=== PATIENT | male | born 1930 | race Caucasian/White ===

== ENCOUNTER 2017-06-25 10:05 | Inpatient (IN) | payer MEDICARE, MEDICAID ==
[~2017-06-25] VITALS: Ht 185.4 cm; Wt 100.0 kg
[~2017-06-25 10:05] MED LIST: AMLODIPINE5 MG PO; ASPIRIN LOW DOS81 MG PO; BUSPIRONE5 MG PO; CRESTOR40 MG PO; CYMBALTA60 MG PO; EQ LAXATIVE8.6 MG PO; GABAPENTIN100 MG PO; HYDROCO/APAP1 TA9 PO; LOSARTAN POT50 MG PO; RAPAFLO8 MG PO; RIVASTIGMINE4.5 MG PO; TOUJEO SOL300 UNIT/M SC; TRAMADOL HCL50 MG PO
[2017-06-25 10:44] LABS: HEMOGLOBIN 12.1 g/dl (14.0-18.0); IMMATURE GRANULOCYTES 0.4 % (0.0-1.0); MEAN CELL VOLUME 88.7 fL CALC (80.0-100.0); MEAN CORPUSCULAR HGB CONC 32.7 g/L CALC (32.0-36.0); NEUT# 14.03 thou/uL (1.82-7.42); RED BLOOD COUNT 4.17 mill/uL (4.70-6.10); RED CELL DISTRI WIDTH 14.5 % (11.5-15.5)
[2017-06-25 11:19] LABS: ALBUMIN 3.9 g/dL (3.2-5.0); BILIRUBIN, TOTAL 1.5 mg/dL (0.0-1.4); CALCIUM 10.2 mg/dL (8.4-10.2); CREATININE 1.7 mg/dL (0.7-1.3); POTASSIUM 4.1 mmol/l (3.5-5.1); TOTAL PROTEIN 8.2 g/dL (6.3-8.2)
[2017-06-25 12:57] LABS: URINE BLOOD DIPSTICK LARGE (NEGATIVE); URINE CLARITY CLEAR; URINE COLOR YELLOW; URINE GLUCOSE - DIPSTICK NEGATIVE (NEGATIVE); URINE KETONE 15 mg/dL (NEGATIVE); URINE LEUK ESTERASE NEGATIVE (NEGATIVE); URINE NITRITE - DIPSTICK NEGATIVE (Negative); URINE PH 5.5 (4.5-8.0); URINE PROTEIN - DIPSTICK 100 mg/dL (NEG-TRACE); URINE SPECIFIC GRAVITY >=1.030; URINE UROBILINOGEN - DIPSTICK 0.2 E.U./dL (0.2)
[2017-06-25 12:58] LABS: URINE BILIRUBIN - DIPSTICK SMALL (NEGATIVE)
[2017-06-25 13:02] LABS: BARBITURATES NEGATIVE (NEGATIVE); COCAINE NEGATIVE (NEGATIVE); METHADONE NEGATIVE (NEGATIVE); OXCYCODONE NEGATIVE (NEGATIVE); TETRAHYDROCANNABIONOL NEGATIVE (NEGATIVE); TRICYLIC ANTIDEPRESSANTS NEGATIVE (NEGATIVE)
[2017-06-25 13:06] LABS: URINE RBC TNTC RBC/hpf (0-5); URINE SQUAMOUS EPITHELIAL CELL FEW EPI/hpf (0-FEW)
[2017-06-25 15:29] VITALS: BP 145/65
[2017-06-25 19:15] VITALS: BP 130/63
[2017-06-25 23:45] VITALS: BP 111/67
[2017-06-26 04:00] VITALS: BP 120/55
[2017-06-26 05:42] LABS: CALCIUM 9.7 mg/dL (8.4-10.2); CREATININE 1.5 mg/dL (0.7-1.3); POTASSIUM 4.1 mmol/l (3.5-5.1)
[2017-06-26 05:44] LABS: HEMATOCRIT 36.3 % (39.0-50.0); HEMOGLOBIN 11.7 g/dl (14.0-18.0); IMMATURE GRANULOCYTES 0.5 % (0.0-1.0); MEAN CELL VOLUME 90.3 fL CALC (80.0-100.0); MEAN CORPUSCULAR HGB 29.1 pG CALC (26.0-32.0); MEAN CORPUSCULAR HGB CONC 32.2 g/L CALC (32.0-36.0); NEUT# 9.46 thou/uL (1.82-7.42); RED BLOOD COUNT 4.02 mill/uL (4.70-6.10); RED CELL DISTRI WIDTH 14.6 % (11.5-15.5)
[2017-06-26 09:01] VITALS: BP 101/61
[2017-06-26 11:35] VITALS: BP 102/37
[2017-06-26 15:54] VITALS: BP 118/57
[2017-06-26 19:00] VITALS: BP 107/63
[2017-06-26 23:00] VITALS: BP 101/58
[2017-06-27 04:20] VITALS: BP 112/65
[2017-06-27 06:21] LABS: ANION GAP 13 (6-22 (CALC)); BUN 20 mg/dL (8-23); BUN/CREATININE RATIO 16 (12-20 (CALC)); CALCIUM 9.3 mg/dL (8.4-10.2); CARBON DIOXIDE 22 mmol/l (22-30); CHLORIDE 109 mmol/l (95-108); CREATININE 1.3 mg/dL (0.7-1.3); GFR 52 ML/MIN (>=60 (CALC)); GFR FOR AFR.AMER. > 60 ML/MIN (>=60 (CALC)); GLUCOSE 64 mg/dL (82-115); MAGNESIUM 1.7 mg/dL (1.6-2.3); SODIUM 140 mmol/l (137-146)
[2017-06-27 07:43] VITALS: BP 109/50
[2017-06-27 08:07] LABS: HEMATOCRIT 31.7 % (39.0-50.0); HEMOGLOBIN 10.2 g/dl (14.0-18.0); IMMATURE GRANULOCYTES 0.5 % (0.0-1.0); MEAN CELL VOLUME 89.5 fL CALC (80.0-100.0); MEAN CORPUSCULAR HGB 28.8 pG CALC (26.0-32.0); MEAN CORPUSCULAR HGB CONC 32.2 g/L CALC (32.0-36.0); NEUT# 6.11 thou/uL (1.82-7.42); RED BLOOD COUNT 3.54 mill/uL (4.70-6.10); RED CELL DISTRI WIDTH 14.5 % (11.5-15.5)
[2017-06-27 11:39] VITALS: BP 98/57
[2017-06-27 15:59] VITALS: BP 101/58
[2017-06-27] MEDS ORDERED: LEVAQUIN750 MG PO (21:57)
[2017-06-27] MEDS ORDERED: TOUJEO SOL300 UNIT/M SC (21:58)
[2017-06-27 23:00] VITALS: BP 98/61
[2017-06-28 04:00] VITALS: BP 115/57
[2017-06-28 05:21] LABS: HEMATOCRIT 31.1 % (39.0-50.0); HEMOGLOBIN 10.1 g/dl (14.0-18.0); IMMATURE GRANULOCYTES 0.6 % (0.0-1.0); MEAN CELL VOLUME 88.9 fL CALC (80.0-100.0); MEAN CORPUSCULAR HGB 28.9 pG CALC (26.0-32.0); MEAN CORPUSCULAR HGB CONC 32.5 g/L CALC (32.0-36.0); NEUT# 5.08 thou/uL (1.82-7.42); RED BLOOD COUNT 3.5 mill/uL (4.70-6.10); RED CELL DISTRI WIDTH 14.4 % (11.5-15.5)
[2017-06-28 05:37] LABS: ANION GAP 12 (6-22 (CALC)); BUN 16 mg/dL (8-23); BUN/CREATININE RATIO 13 (12-20 (CALC)); CALCIUM 9.5 mg/dL (8.4-10.2); CARBON DIOXIDE 24 mmol/l (22-30); CHLORIDE 111 mmol/l (95-108); CREATININE 1.3 mg/dL (0.7-1.3); GFR 52 ML/MIN (>=60 (CALC)); GFR FOR AFR.AMER. > 60 ML/MIN (>=60 (CALC)); GLUCOSE 68 mg/dL (82-115); MAGNESIUM 1.8 mg/dL (1.6-2.3); POTASSIUM 3.9 mmol/l (3.5-5.1); SODIUM 143 mmol/l (137-146)
[2017-06-28 11:00] VITALS: BP 134/72
== END 2017-06-28 15:58 | DRG 195 ==
LOC: ED 10:05 → ED-I 12:42 → ED 13:21 → MS2 13:22
PROVIDERS: Emergency Medicine; Nurse Practitioner Family; ADMIT Internal Medicine; ATTEND Internal Medicine
DX: J18.9 Pneumonia, unspecified organism (principal); E11.22 Type 2 diabetes mellitus with diabetic chronic kidney disease; E11.69 Type 2 diabetes mellitus with other specified complication; I12.9 Hypertensive chronic kidney disease with stage 1 through stage 4 chronic kidney disease, or unspecified chronic kidney disease; N18.9 Chronic kidney disease, unspecified; E78.5 Hyperlipidemia, unspecified; R25.1 Tremor, unspecified; E03.9 Hypothyroidism, unspecified; M62.81 Muscle weakness (generalized); Z95.1 Presence of aortocoronary bypass graft; Z91.81 History of falling; Z99.3 Dependence on wheelchair; Z79.4 Long term (current) use of insulin

== ENCOUNTER 2017-11-03 07:36 | Day surgery (SDC) | payer MEDICARE, MEDICAID ==
[~2017-11-03] VITALS: Ht 185.4 cm; Wt 100.7 kg
[~2017-11-03 07:36] MED LIST changes: +ADULT ASPIRIN E81 MG PO; +B COMPLE2 PO; +FOLIC ACID800 MC1 PO; +IRON PO; +LEVAQUIN750 MG PO
[2017-11-03 10:26] VITALS: BP 94/52
== END 2017-11-03 10:40 | disposition home or self-care (01) ==
LOC: ENDO 07:36 → ORM 10:55 → ENDO 10:55 → ORM 11:30 → ENDO 12:35
PROVIDERS: ATTEND Internal Medicine Gastroenterology
PROC: 0DB48ZX Excision of Esophagogastric Junction, Via Natural or Artificial Opening Endoscopic, Diagnostic (ICD-10-PCS; principal; 2017-11-03)
PROC: 0DB78ZX Excision of Stomach, Pylorus, Via Natural or Artificial Opening Endoscopic, Diagnostic (ICD-10-PCS; 2017-11-03)
PROC: 0D758ZZ Dilation of Esophagus, Via Natural or Artificial Opening Endoscopic (ICD-10-PCS; 2017-11-03)
DX: K22.2 Esophageal obstruction (principal); K31.7 Polyp of stomach and duodenum; Q39.9 Congenital malformation of esophagus, unspecified; J38.7 Other diseases of larynx; K29.50 Unspecified chronic gastritis without bleeding; K22.70 Barrett's esophagus without dysplasia; E11.22 Type 2 diabetes mellitus with diabetic chronic kidney disease; I12.9 Hypertensive chronic kidney disease with stage 1 through stage 4 chronic kidney disease, or unspecified chronic kidney disease; I25.10 Atherosclerotic heart disease of native coronary artery without angina pectoris; N18.9 Chronic kidney disease, unspecified

== ENCOUNTER 2017-12-31 02:02 | Inpatient (IN) | payer MEDICARE, MEDICAID ==
[~2017-12-31] VITALS: Ht 185.4 cm; Wt 104.6 kg
[~2017-12-31 02:02] MED LIST changes: +CRESTOR10 MG PO; -CRESTOR40 MG PO
--- NOTE | 2017-12-31 02:23 | NUR ---
PT. TO ROOM 6 VIA EMS WITH C/O BY EMS THAT THE PT. CALLED AND JUST STATED HE WANTED TO GO TO THE HOSPITAL. UPON ARRIVAL PT. IS ARGUMENATIVE WITH STAFF AND EMS. STATING, " WHY DID I COME HERE I SHOULD HAVE STAYED HOME AND ." SKIN WARM AND DRY TO TOUCH, COLOR WNL, RESP. EVEN AND UNLABORED. PUPILS PIN POINT.
--- NOTE | 2017-12-31 02:30 | NUR ---
PT. SCREAMING, " GET ME OUT OF HERE." " I WANT TO LEAVE."
--- NOTE | 2017-12-31 02:40 | NUR ---
IVF AND IV HALDOL GIVEN PER MD ORDER.
[2017-12-31] MEDS ORDERED: RAPAFLO8 MG PO (02:42)
[2017-12-31] MEDS ORDERED: TRESIBA FL200 UNIT/M SC (02:43)
[2017-12-31] MEDS ORDERED: NAMZARIC 28-101 CAP PO (02:44)
[2017-12-31] MEDS ORDERED: EQ NATURAL LAX8.6 MG (02:47)
[2017-12-31] MEDS ORDERED: MINOCYCLINE HY100 MG PO (02:47)
[2017-12-31] MEDS ORDERED: OMEPRAZOLE20 M1 PO (02:49)
[2017-12-31 02:57] LABS: HEMOGLOBIN 11.4 g/dl (14.0-18.0); IMMATURE GRANULOCYTES 0.3 % (0.0-1.0); MEAN CELL VOLUME 89.3 fL CALC (80.0-100.0); MEAN CORPUSCULAR HGB 29.1 pG CALC (26.0-32.0); MEAN CORPUSCULAR HGB CONC 32.6 g/L CALC (32.0-36.0); NEUT# 5.15 thou/uL (1.82-7.42); RED BLOOD COUNT 3.92 mill/uL (4.70-6.10); RED CELL DISTRI WIDTH 14.5 % (11.5-15.5)
[2017-12-31 03:32] LABS: ALBUMIN 3.2 g/dL (3.2-5.0); ALKALINE PHOSPHATASE 109 u/l (38-126); BILIRUBIN, TOTAL 0.9 mg/dL (0.0-1.4); BUN 13 mg/dL (8-23); BUN/CREATININE RATIO 9 (12-20 (CALC)); CARBON DIOXIDE 24 mmol/l (22-30); CHLORIDE 111 mmol/l (95-108); CREATININE 1.5 mg/dL (0.7-1.3); GFR 44 ML/MIN (>=60 (CALC)); GFR FOR AFR.AMER. 54 ML/MIN (>=60 (CALC)); SGOT/AST 33 u/l (19-48); SGPT/ALT 33 u/l (11-66); SODIUM 148 mmol/l (137-146); TOTAL PROTEIN 6.4 g/dL (6.3-8.2)
[2017-12-31 03:33] LABS: ANION GAP 17 (6-22 (CALC)); ETHYL ALCOHOL 0 mg/dl (0-30); POTASSIUM 3.5 mmol/l (3.5-5.1)
--- NOTE | 2017-12-31 03:40 | NUR ---
PT. NOT ARGUMENITIVE BUT NOT ABLE TO LIE STILL ON STRETCHER, AWARE.
[2017-12-31 03:55] LABS: URINE BILIRUBIN - DIPSTICK NEGATIVE (NEGATIVE); URINE BLOOD DIPSTICK MODERATE (NEGATIVE); URINE COLOR YELLOW; URINE GLUCOSE - DIPSTICK NEGATIVE (NEGATIVE); URINE KETONE TRACE mg/dL (NEGATIVE); URINE LEUK ESTERASE NEGATIVE (NEGATIVE); URINE NITRITE - DIPSTICK NEGATIVE (Negative); URINE PH 5.5 (4.5-8.0); URINE PROTEIN - DIPSTICK NEGATIVE (NEG-TRACE); URINE SPECIFIC GRAVITY 1.025; URINE UROBILINOGEN - DIPSTICK 0.2 E.U./dL (0.2)
[2017-12-31 03:59] LABS: BARBITURATES NEGATIVE (NEGATIVE); COCAINE NEGATIVE (NEGATIVE); METHADONE NEGATIVE (NEGATIVE); OXCYCODONE NEGATIVE (NEGATIVE); TETRAHYDROCANNABIONOL NEGATIVE (NEGATIVE); TRICYLIC ANTIDEPRESSANTS NEGATIVE (NEGATIVE)
[2017-12-31 04:00] LABS: URINE CLARITY CLEAR
[2017-12-31 04:09] LABS: URINE BACTERIA RARE hpf; URINE TRANSITIONAL EPI. CELLS FEW hpf; URINE WBC 0-2 WBC/hpf (0-5)
--- NOTE | 2017-12-31 04:50 | NUR ---
IV ATIVAN GIVEN PER MD ORDER.
--- NOTE | 2017-12-31 05:47 | NUR ---
Admission Note Report Given to: JOYCE SUMMERS Transported by: Wheelchair X Stretcher Transported with: X Nurse Transporter X Patent IV O2 X Rod Placer
--- NOTE | 2017-12-31 06:25 | NUR ---
PT. TAKEN TO MS VIA STRETCHER, NO C/O AT THIS TIME.
--- NOTE | 2017-12-31 06:28 | NUR ---
PT ARRIVED TO UNIT VIA STRETCHER WITH ER STAFF. TRANSFERED TO BED X 3 PERSON ASSIST. PT WAS COOPERATIVE; ALERT AND ORIENTED. DENIES PAIN CURRENTLY. RESPIRATIONS EVEN AND UNLABORED ON ROOM AIR; LUNGS CLEAR. BED ALARM PLACED FOR SAFETY AND DUE TO PREVIOUS AGRRESSIVE BEHAVIORS. ORIENTED TO ROOM AND CALL LIGHT SYSTEM. IV FLUIDS INITIATED. PT REPEATEDLY ASKING WHERE DR. MORSE IS AND REQUESTING BLANKETS. ANSWERED ADMISSION QUESTIONS APPROPRIATELY. SAFETY MEASRUES IN PLACE. CALL LIGHT SYSTEM REVIEWED AND IN REACH.
[2017-12-31 06:34] VITALS: BP 112/55
--- NOTE | 2017-12-31 06:45 | NUR ---
PT STATES THAT HE LIVES AT HOME AND HAS A NEW CAREGIVER THAT LIVES WITH HIM. WHEN NURSE INQUIRED TO WHY HE CALLED EMS HE WAS UNABLE TO GIVE AN EXACT ANSWER. PT DENIES FEELING SICK OR HAVING PAIN. HE FINALLY ANSWERED, "BUT IT'S BULLSHIT." HE IS ORIENTED TO PERSON AND PLACE. RESTING IN BED WITH EYES CLOSED.
--- NOTE | 2017-12-31 07:22 | NUR ---
REPORT RECEIVED FROM MELINA COOK. PT SUPINE IN BED. SLEEPING. CALL LIGHT WITHIN REACH. BED ALARM SET FOR SAFETY.
--- NOTE | 2017-12-31 10:30 | NUR ---
PHONE CALL WITH TERE LARIOS, REQUESTED BY PT. TO LET HER KNOW WHERE PT IS. TERE STATES SHE WILL BE IN THIS AFTERNOON.
[2017-12-31 12:00] VITALS: BP 120/62
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
[2017-12-31 15:53] VITALS: BP 135/78
--- NOTE | 2017-12-31 17:14 | NUR ---
PT SET OFF BED ALARM. ASSISTED TO CHAIR AT BEDSIDE. SET UP FOR DINNER TRAY. BED ALARM ATTACHED TO GOWN FOR SAFETY.
[2017-12-31 18:43] VITALS: BP 135/76
--- NOTE | 2017-12-31 19:30 | NUR ---
PATIENT RESTING IN BED-AWAKE ALERT ORIENTED TO PERSON AND PLACE ONLY. PATIENT ASKING FOR TERE-EXPLAINED THAT SHE WAS NOT HERE AT THIS TIME. HEP LOCK TO LEFT AC INTACT-FLUSHED WITH GOOD BLOOD RETURN. PATIENT WITH FINE TREMORS OF BOTH UPPER EXTREMILTY. NO COMPLAINS OF PAIN AT THIS TIME. PATIENT WAS GIVEN PARTIAL BED BATH-STATES THAT HE FEELS BETTER. BED ALARM IN PLACE FOR PATIENT SAFETY. CALL LIGHT IN REACH. WILL CONT TO MONITOR.
--- NOTE | 2017-12-31 20:57 | NUR ---
PATIENT CALLING OUT AND RESTLESS IN BED. PATIENT MEDICATED WITH ATIVAN 1MG IVP ORDERED FOR AGGITATION. PATIENT REPOSITIONED IN BED. BED ALARM IN PLACE FOR PATIENT SAFETY. CALL LIGHT IN REACH. WILL CONT TO MONITOR.
--- NOTE | 2017-12-31 22:28 | NUR ---
APPEARS SLEEPING AT THIS TIME WITH EYES CLOSED IN NO ACUTE DISTRESS. BED ALARMS IN PLACE FOR PATIENT SAFETY. CALL LIGHT IN REACH. WILL CONT TO MONITOR.
[2017-12-31 23:06] VITALS: BP 138/78
--- NOTE | 2017-12-31 23:12 | NUR ---
BED ALARM IS GOING OFF AND PATIENT IS TRYING TO GET OOB-VERY UNSTEADY ON HIS FEET. PATIENT INCONT OF URINE IN BED. ASSISTED PATIENT TO STAND AND HE VOIDED 50CC OF YELLOW URINE IN URINAL.COMPLETE BED LINEN CHANGE AND ARLEEN-CARE DONE WITH SOAP AND WATER-PATIENT ASSISTED BACK TO THE BED. VS TAKEN AND RECORDED. AFEBRILE AT THIS TIME. PATIENT IS CONFUSED TO TIME AND PLACE-ATTEMPTED TO REORIENT PATIENT. BED ALARM IN PLACE FOR PATIENT SAFETY. CALL LIGHT IN REACH. WILL CONT TO MONITOR.
--- NOTE | 2018-01-01 01:00 | NUR ---
PATIENT RESTING IN BED-CALLING AND YELLING OUT. BED ALARMS GOING OFF-ATTEMPT TO REASON WITH PATIENT IS UNSUCCESSFUL. PATIENT IS CONFUSED AND WANTS TO LEAVE. ASKING FOR TERE. PATIENT WAS REPOSITIONED AND BED ALARMS WERE PLACED. CALL LIGHT IN REACH. WILL CONT TO MONITOR.
--- NOTE | 2018-01-01 02:39 | NUR ---
PATIENT RESTING IN BED BUT CONT TO SET OFF BED ALARMS AND IS "HOWLING" LOUDY. PATIENT IS CONFUSED AND TOTALLY INAPPROPRIATE. PATIENT DOES BECOME VERY AGITATED AT TIMES. PATIENT MEDICATED WITH ATIVAN 1MG IVP ORDERED FOR HIGH ANXIETY AND AGITATION. BED ALARMS IN PLACE FOR PATIENT SAFETY. CALL LIGHT IN REACH. WILL CONT TO MONITOR.
[2018-01-01 04:14] VITALS: BP 150/73
[2018-01-01 05:07] LABS: HEMATOCRIT 32.5 % (39.0-50.0); HEMOGLOBIN 10.5 g/dl (14.0-18.0); IMMATURE GRANULOCYTES 0.3 % (0.0-1.0); MEAN CELL VOLUME 90.3 fL CALC (80.0-100.0); MEAN CORPUSCULAR HGB 29.2 pG CALC (26.0-32.0); MEAN CORPUSCULAR HGB CONC 32.3 g/L CALC (32.0-36.0); NEUT# 5.78 thou/uL (1.82-7.42); RED BLOOD COUNT 3.6 mill/uL (4.70-6.10); RED CELL DISTRI WIDTH 14.4 % (11.5-15.5)
[2018-01-01 05:21] LABS: ALBUMIN 2.9 g/dL (3.2-5.0); BILIRUBIN, TOTAL 0.4 mg/dL (0.0-1.4); CREATININE 1.4 mg/dL (0.7-1.3); MAGNESIUM 1.6 mg/dL (1.6-2.3); POTASSIUM 3.7 mmol/l (3.5-5.1); TOTAL PROTEIN 6.2 g/dL (6.3-8.2)
--- NOTE | 2018-01-01 05:23 | NUR ---
APPEARS SLEEPING AT THIS TIME WITH EYES CLOSED. BED ALARMS IN PLACE FOR PATIENT SAFETY. CALL LIGHT IN REACH. WILL CONT TO MONITOR.
--- NOTE | 2018-01-01 07:00 | NUR ---
REPORT RECEIVED FROM MELINA TANNER;PT APPEARS TO BE RESTING IN SUPINE POSITION;NO S/S OF DISTRESS NOTED;RESPIRATIONS EVEN AND UNLABORED ON RA;BED ALARM ON FOR PT SAFETY;WILL CONTINUE TO MONITOR
--- NOTE | 2018-01-01 07:51 | NUR ---
PT OOB RESTING IN RECLINER WITH BED ALARM IN PLACE;DROWSY AND ALERT TO SELF;PT RE-ORIENTED TO PLACE AND TIME BUT UNSUCCESSFUL DUE TO COGNITIVE LIMITATIONS;ASSESSMENT COMPLETED;RESPIRATIONS EVEN AND UNLABORED ON RA,CLEAR LUNG SOUNDS NOTED ON AUSCULTATION;ABDOMEN DISTENDED/SOFT ON PALPATION AND ACTIVE IN ALL 4 QUADRANTS;STRONG PEDAL PULSES;#20G TO LAC FLUSHED AND PATENT,SITE APPEARS HEALTHY;TELE MONITOR IN PLACE;PT VOICES NO COMPLAINTS OF PAIN OR DISCOMFORTS;BED ALARM ON FOR SAFETY;PO FLUIDS ENCOURAGED;FALL PRECAUTIONS IN PLACE;WILL CONTINUE TO MONITOR
[2018-01-01 07:53] VITALS: BP 115/69
--- NOTE | 2018-01-01 08:10 | NUR ---
PT ATTEMPING TO GET OUT THE THE RECLINER MULTIPLE TIMES;ATTEMPTED TO RE-POSITION PT BACK INTO BED BUT HE REFUSES;GRABBING AND THROWING TELEMETRY BOX AT STAFF;ALARM REMAINS IN PLACE FOR SAFETY
--- NOTE | 2018-01-01 08:30 | NUR ---
PT SETS OFF ALARM AGAIN;RE-POSITIONED BACK INTO RECLINER;ATTEMPTING TO HIT STAFF MEMBERS AND KICK SIDE TABLE;ATTEMPTED TO RE-ORIENT PATIENT BUT UNSUCCESSFUL AT THIS TIME;WILL CONTINUE TO MONITOR
--- NOTE | 2018-01-01 08:45 | NUR ---
PT RESTING IN RECLINER;SIDE TABLE KICKED AND HEARD FROM THE NURSES STATION;UPON ENTERING THE ROOM PT IS THROWING TISSUES AND ATTEMPTING TO STEP ON STAFFS FEET STATING "YOU LEAVE ME ALONE";ATTEMPTS MADE AGAIN TO RE-ORIENT;ALARM ON FOR SAFETY;WILL CONTINUE TO MONITOR
--- NOTE | 2018-01-01 09:50 | NUR ---
ISMAEL CHUN AND ISMAEL ALBERTO WITH PT;LOUD CRASH HEARD FROM ROOM;UPON ENTERING THE ROOM PT FOUND ON THE FLOOR;SENIOR CONTRACTS ADMINISTRATOR'S REPORTED THAT PT WAS ATTEMPTING TO HIT STAFF MEMBER WITH THE TELEMETRY BOX WHEN HE STOOD AND FELL TO THE GROUND;VS OBTAINED AND PT RE-POSITIONED INTO BED WITH 4 PERSON ASSIST;MODERATLEY SIZED SKIN TEAR NOTED TO RIGHT EYE;PT VOICES NO COMPLAINTS OF PAIN OR DISCOMFORTS;THUY TONGRP NOTIFIED AT THIS TIME
--- NOTE | 2018-01-01 10:20 | NUR ---
IV SITE FOUND DISLODGED,SITE REMOVED WITH CATHETER INTACT;NEW #22G TO RIGHT HAND STARTED,FLUSHED AND PATENT.
--- NOTE | 2018-01-01 10:30 | NUR ---
PT TO XRAY AT THIS TIME VIA STRETCHER ACCOMPANIED BY ISMAEL CHUN
[2018-01-01 11:00] VITALS: BP 158/74
--- NOTE | 2018-01-01 11:00 | NUR ---
PT RETURNED TO FLOOR VIA STRETCHER IN STABLE CONDITION
--- NOTE | 2018-01-01 13:20 | NUR ---
SIGNIFICANT OTHER BROUGHT HOME MEDICATIONS AND CLOTHES FOR PT;PT SLEEPING IN SUPINE POSITION WITH RAZISMAEL AT BEDSIDE;NO S/S OF DISTRESS NOTED;RESPIRATIONS EVEN AND UNLABORED ON RA;IV SITE PATENT INFUSING NS @ 80ML/HR,SITE APPEARS HEALTHY;BED ALARM ON FOR PT SAFETY;WILL CONTINUE TO MONITOR
--- NOTE | 2018-01-01 16:30 | NUR ---
PT COMBATIVE,ATTEMPTING TO KICK AND PUNCH NURSING STAFF;SHANICE CARRASQUILLO,ANRP NOTIFIED AND HALDOL 5MG IVP ADMINISTERED;WILL CONTINUE TO MONITOR FOR EFFECTIVENESS
--- NOTE | 2018-01-01 17:00 | NUR ---
IV SITE FOUND REMOVED BY PT WITH CATHETER INTACT
[2018-01-01 19:00] VITALS: BP 150/70
--- NOTE | 2018-01-01 19:45 | NUR ---
PATIENT RESTING IN BED-MEDICATED WITH ATIVAN 2MG IM AND BENEDRYL 25MG IM FOR RESTLESSNESS ORDERED. PATIENT TURNED AND REPOSITIONED. BED ALARMS IN PLACE FOR PATIENT SAFETY. CALL LIGHT IN REACH. WILL CONT TO MONITOR.
--- NOTE | 2018-01-01 22:54 | NUR ---
PATIENT RESTING IN BED APPEARS SLEEPING WITH EYES CLOSED. BED ALARMS IN PLACE FOR PATIENT SAFETY. TELE MONITORING DEVICE IS OFF AT THIS TIME DUE TO EARLIER AGGRESSIVE BEHAVIOR. NO IV SITE AT THIS TIME DUE TO EARLIER BEHAVIOR. CALL LIGHT IN REACH. WILL CONT TO MONITOR.
--- NOTE | 2018-01-01 23:19 | NUR ---
PATIENT IS CALLING OUT-RESPONDED TO ROOM AND ASSISTED PATIENT WITH PLACING URINAL AND HE VOIDED 350CC OF YELLOW URINE. BED ALARMS REMAIN IN PLACE. CALL LIGHT IN REACH. WILL CONT TO MONITOR.
[2018-01-02 03:44] VITALS: BP 154/78
--- NOTE | 2018-01-02 04:02 | NUR ---
PATIENT RESTING IN BED-COMPLETE BED BATH GIVEN AND LINENS CHANGED. PATIENT IS LETHARGIC BUT COOPERAATIVE AT THIS TIME. PROTECTIVE DRESSING INTACT TO COCCYX AREA. BED ALARMS REMAININ PLACE FOR PATIENT SAFETY. CALL LIGHTIN REACH. WILL CONT TO MONITOR.
[2018-01-02 05:41] LABS: HEMATOCRIT 35.4 % (39.0-50.0); HEMOGLOBIN 11.5 g/dl (14.0-18.0); IMMATURE GRANULOCYTES 0.3 % (0.0-1.0); MEAN CELL VOLUME 90.5 fL CALC (80.0-100.0); MEAN CORPUSCULAR HGB 29.4 pG CALC (26.0-32.0); MEAN CORPUSCULAR HGB CONC 32.5 g/L CALC (32.0-36.0); NEUT# 4.1 thou/uL (1.82-7.42); RED BLOOD COUNT 3.91 mill/uL (4.70-6.10); RED CELL DISTRI WIDTH 14.6 % (11.5-15.5)
[2018-01-02 06:20] LABS: ANION GAP 16 (6-22 (CALC)); BUN 12 mg/dL (8-23); BUN/CREATININE RATIO 9 (12-20 (CALC)); CARBON DIOXIDE 24 mmol/l (22-30); CHLORIDE 111 mmol/l (95-108); CREATININE 1.3 mg/dL (0.7-1.3); GFR 52 ML/MIN (>=60 (CALC)); GFR FOR AFR.AMER. > 60 ML/MIN (>=60 (CALC)); MAGNESIUM 1.8 mg/dL (1.6-2.3); POTASSIUM 3.5 mmol/l (3.5-5.1); SODIUM 148 mmol/l (137-146)
--- NOTE | 2018-01-02 07:00 | NUR ---
REPORT RECEIVED FROM MELINA TANNER;PT APPEARS TO BE SLEEPING PEACEFULLY IN SUPINE POSITION;NO S/S OF DISTRESS NOTED;RESPIRATIONS EVEN AND UNLABORED ON RA;TELE MONITOR IN PLACE;BED ALARM ON FOR PT SAFETY;CALL LIGHT IN REACH;WILL CONTINUE TO MONITOR
--- NOTE | 2018-01-02 10:00 | NUR ---
PT CONTINUES TO SLEEP,HARD TO AROSE;ALERT TO SELF;ASSESSMENT COMPLETED;RESPIRATIONS EVEN AND UNLABORED,SHALLOW ON RA;ABDOMEN DISTENDED/SOFT ON PALPATION WITH 4 ACTIVE BOWEL SOUNDS;TELE MONITOR IN PLACE;NO IV SITE AT THIS TIME,MD AWARE;ABRASION NOTED TO RIGHT EYE,JACINTO;BED ALARM ON FOR PT SAFETY;CALL LIGHT IN REACH;WILL CONTINUE TO MONITOR
[2018-01-02 10:59] VITALS: BP 163/79
--- NOTE | 2018-01-02 11:30 | NUR ---
PT RESTING IN SUPINE POSITION;WOKE PT TO OBTAIN VS;ACCUCHECK 78, ORANGE JUICE AND CRACKERS PROVIDED;PT COMPLAINS OF COCCYX PAIN RATING 8/10 ON THE PAIN SCALE AND REQUESTS PAIN MEDICATION;PT MEDICATED WITH PRN LORTAB 5/325MG 1 COMBO AT THIS TIME;RE-POSITIONED PER REQUEST TO RIGHT SIDE LAYING POSITION;NEW #22G STARTED TO LEFT HAND,FLUSHED AND PATENT;NS RE-STARTED @ 80ML/HR,PT TOLERATED WELL;PT DENIES ANY OTHER NEEDS;FALL PRECAUTIONS REMAIN IN PLACE WITH BED ALARM ON;WILL CONTINUE TO MONITOR
--- NOTE | 2018-01-02 13:00 | NUR ---
ACCUCHECK RE-CHECK 159 AFTER LUNCH
--- NOTE | 2018-01-02 16:00 | NUR ---
PT SLEEPING IN SUPINE POSITION;WOKE PT TO OBTAIN VS;RESPIRATIONS EVEN AND UNLABORED ON RA;IV SITE PATENT INFUSING NS @ 80ML/HR;TELE MONITOR AND BED ALARM IN PLACE;CALL LIGHT IN REACH;WILL CONTINUE TO MONITOR
[2018-01-02 16:06] VITALS: BP 142/63
[2018-01-02 19:20] VITALS: BP 175/79
--- NOTE | 2018-01-02 20:00 | NUR ---
PATIENT RESTING IN BED AT THIS TIME-EASY TO AROUSE. PATIENT IS APPROPRIATE AND CONVERSATING APPROPROPRIATELY. COOPERATIVE IN HIS CARE. PATIENT USING URINAL WHEN OFFERED AND VOIDING CLEAR YELLOW URINE. IV SITE TO LEFT HAND INTACT WITH IVF NS PATENT AND INFUSING AT 80CC/HR. SITE APPEARS HEALTHY AT THIS ITME. TELE MONITORING DEVICE IN PLACE. BED ALARMS IN PLACE FOR PATIENT SAFETY. CALL LIGHT IN REACH. WILL CONT TO MONITOR.
[2018-01-03] VITALS (7 sets, daily range): BP systolic 146–181; BP diastolic 73–88
--- NOTE | 2018-01-03 | NUR ---
PATIENT IS RESTING IN BED AT THIS TIME AND APPEARS SLEEPING. LACERATION TO RIGHT EYE IS WELL APPROXIMATED WITH NO DRAINAGE NOTED. CLOSED AND JACINTO. PATIENT WILL CALL OUT WHEN HE IS IN NEED-USE OF URINAL OR REPOSITIONING. BED ALARMS IN PLACE FOR PATIENT SAFETY. CALL LIGHT IN REACH. WILL CONT TO MONITOR.
--- NOTE | 2018-01-03 02:45 | NUR ---
PATIENT INCONT OF MODERATE AMT OF URINE. ARLEEN-CARE WAS DONE WITH SOAP AND WATER. PADS WERE CHANGED. PATIENT TURNED AND REPOSITIONED. TAKING PO FLUIDS WHEN OFFERED. PATIENT CONVERSATING APPROPRIATELY AT THIS TIME. BED ALARM IN PLACE FOR PATIENT SAFETY. CALL LIGHT IN REACH. WILL CONT TO MONITOR.
[2018-01-03 05:18] LABS: HEMATOCRIT 36.3 % (39.0-50.0); HEMOGLOBIN 11.6 g/dl (14.0-18.0); MEAN CORPUSCULAR HGB 29.1 pG CALC (26.0-32.0); RED BLOOD COUNT 3.99 mill/uL (4.70-6.10); RED CELL DISTRI WIDTH 14.6 % (11.5-15.5)
[2018-01-03 05:28] LABS: CREATININE 1.4 mg/dL (0.7-1.3); MAGNESIUM 1.7 mg/dL (1.6-2.3); POTASSIUM 3.9 mmol/l (3.5-5.1)
--- NOTE | 2018-01-03 06:17 | NUR ---
RESTING QUIETLY IN BED AT THIS TIME. BED ALARM IN PLACE FOR PATIENT SAFETY. CALL LIGHT IN REACH. WILL CONT TO MONITOR.
--- NOTE | 2018-01-03 07:00 | NUR ---
REPORT RECEIVED FROM MELINA TANNER;PT FOUND IN SEMI FOWLERS POSITION WITH BUTTING SAW OPERATOR OFF AND IV SITE DISLODGED;COMPLETE BED BATH AND ARLEEN CARE PROVIDED;PT VOICES NO COMPLAINTS OF PAIN;ALERT TO PERSON;BED ALARM REMAINS ON FOR PT SAFETY;BED IN THE LOWEST POSITION WITH CALL LIGHT IN REACH;WILL CONTINUE TO MONITOR
--- NOTE | 2018-01-03 08:30 | NUR ---
PT RESTING IN HIGH FOWLERS POSITION;VS OBTAINED AND ASSESSMENT COMPLETED;RESPIRATIONS EVEN AND UNLABORED ON RA,CLEAR LUNG SOUNDS NOTED;ABDOMEN DISTENDED/SOFT ON PALPATION WITH 4 ACTIVE BOWEL SOUNDS;ADDITIONAL ORANGE JUICE PROVIDED FOR LOWER BLOOD SUGAR OF 73;PT ALERT TO SELF;ORIENTED ACCORDINGLY;TELE MONITOR IN PLACE;PT COMPLAINS OF COCCYX PAIN RATING 5/10 ON THE PAIN SCALE AND REQUESTS PAIN MEDICATION;PT MEDICATED WITH LORTAB 5/325MG 1 COMBO PO AND REPOSITIONED FOR COMFORT;ABRASION NOTED TO RIGHT EYE,GARMENT LINER R/T A FALL;ALL SAFETY PRECAUTIONS REINFORCED INCLUDING BED ALARM;PT ENCOURAGED TO CALL FOR ASSISTANCE IF NEEDED;WILL CONTINUE TO MONITOR
--- NOTE | 2018-01-03 09:27 | NUR ---
ACCUCHECK RE-CHECK 102
--- NOTE | 2018-01-03 10:50 | NUR ---
NEW #22G STARTED TO RIGHT HAND,NS RE-STARTED @ 80ML/HR;PT TOLERATED WELL
--- NOTE | 2018-01-03 11:30 | NUR ---
PT AT BEDSIDE
--- NOTE | 2018-01-03 11:45 | NUR ---
PT AMBULATED HALF WAY DOWN THE HALLWAY WITH WALKER AND 2 PERSON ASSIST,UNSTEADY GAIT;RE-POSITIONED BACK INTO BED;TELE MONITOR IN PLACE;IV SITE PATENT;PT DENIES ANY PAIN OR DISCOMFORTS;FALL PRECAUTIONS IN PLACE WITH BED ALARM ON;WILL CONTINUE TO MONITOR
--- NOTE | 2018-01-03 15:58 | NUR ---
PT APPEARS TO BE SLEEPING IN SUPINE POSITION;RESPIRATIONS EVEN AND UNLABORED ON RA;NO S/S OF DISTRESS NOTED;IV SITE PATENT INFUSING NS @ 80ML/HR WITH EASE;TELE MONITOR IN PLACE;BED ALARM ON FOR PT SAFETY;WILL CONTINUE TO MONITOR
--- NOTE | 2018-01-03 17:15 | NUR ---
PT CURRENT MANUAL BP 170/80 HR 73;PRN APRESOLINE 10MG IVP ADMINISTERED BY MELINA DURON;PT ASYMPTOMATIC AT THIS TIME;WILL CONTINUE TO MONITOR
--- NOTE | 2018-01-03 18:35 | NUR ---
PT FOUND WITH IV SITE REMOVED WITH CATHETER INTACT;NEW #22G STARTED TO RIGHT HAND;NS RE-STARTED @ 80ML/HR
--- NOTE | 2018-01-03 20:28 | NUR ---
TEMP 101.6, TYLENOL 650MGPO PROVIDED PO. PT A/O TO SELF, IS CONFUSED BUT PLEASANT AND FOLLOWS DIRECTIONS. RESPIRAITONS EVEN AND UNLABORED. DENIES PAIN OR DISOCMFORT AT THIS TIME. BED ALARM IN PLACE, WILL CONTINUE TO MONITOR.
--- NOTE | 2018-01-03 21:22 | NUR ---
NEW IV STARTED TO RFA ON 1ST ATTEMPT TOLERATED WELL. IV TO RH DC'D WITH CATH TIP INTACT DUE TO OCCLUSION. TEMP 101.3 AT THIS TIME. WILL CONTINUE TO MONITOR. BED ALARM IN PLACE.
--- NOTE | 2018-01-03 23:15 | NUR ---
RESTING WITH EYES CLOSED, IV FLUIDS INFUSING TO RFA WITH NO COMPLICATIONS. TEMP 99.9 AT THIS TIME.
[2018-01-04 00:42] VITALS: BP 137/65
--- NOTE | 2018-01-04 01:20 | NUR ---
PT CALLING OUT OF URINAL, CLEAN CATCH URINE OBTAINED AND TAKEN TO LAB. RESPIRATIONS EVEN AND UNLABORED. BED ALARM IN PLACE.
[2018-01-04 01:26] LABS: URINE BILIRUBIN - DIPSTICK NEGATIVE (NEGATIVE); URINE BLOOD DIPSTICK TRACE-INTACT (NEGATIVE); URINE CLARITY CLEAR; URINE COLOR YELLOW; URINE GLUCOSE - DIPSTICK NEGATIVE (NEGATIVE); URINE KETONE NEGATIVE (NEGATIVE); URINE LEUK ESTERASE NEGATIVE (NEGATIVE); URINE NITRITE - DIPSTICK NEGATIVE (Negative); URINE PH 5.5 (4.5-8.0); URINE PROTEIN - DIPSTICK NEGATIVE (NEG-TRACE); URINE SPECIFIC GRAVITY <=1.005; URINE UROBILINOGEN - DIPSTICK 0.2 E.U./dL (0.2)
--- NOTE | 2018-01-04 04:08 | NUR ---
RESTING ON LEFT SIDE WITH EYES CLOSED, RESPIRATIONS EVEN AND UNLABORED. BED ALARM IN PLACE.
--- NOTE | 2018-01-04 04:50 | NUR ---
IV FOUND DISLODGED WITH CATH TIP INTACT, NEW IV STARTED TO LFA ON 2ND ATTEMPT, TOLERATED WELL. PT IS CONFUSED BUT PLEASANT FOLLOWS DIRECTIONS, INCONTINENT OF LARGE AMOUNT YELLOW URINE, ARLEEN CARE PROVIDED.
[2018-01-04 05:04] VITALS: BP 169/86
[2018-01-04 05:41] LABS: CREATININE 1.5 mg/dL (0.7-1.3); HEMATOCRIT 33.6 % (39.0-50.0); HEMOGLOBIN 10.7 g/dl (14.0-18.0); MAGNESIUM 1.8 mg/dL (1.6-2.3); MEAN CELL VOLUME 91.3 fL CALC (80.0-100.0); MEAN CORPUSCULAR HGB 29.1 pG CALC (26.0-32.0); MEAN CORPUSCULAR HGB CONC 31.8 g/L CALC (32.0-36.0); POTASSIUM 3.8 mmol/l (3.5-5.1); RED BLOOD COUNT 3.68 mill/uL (4.70-6.10); RED CELL DISTRI WIDTH 14.8 % (11.5-15.5)
--- NOTE | 2018-01-04 07:00 | NUR ---
REPORT RECEIVED FROM GILBERTO CHADWICK;PT APPEARS TO BE SLEEPING IN SUPINE POSITION;NO S/S OF DISTRESS NOTED;RESPIRATIONS EVEN AND UNLABORED ON RA;IV SITE PATENT;FALL PRECAUTIONS IN PLACE WITH BED ALARM ON FOR SAFETY;CALL LIGHT IN REACH;WILL CONTINUE TO MONITOR
--- NOTE | 2018-01-04 08:45 | NUR ---
PT RESTING IN SUPINE POSITION;VS OBTAINED AND ASSESSMENT COMPLETED;CURRENT TEMP 99.4,BLANKETS REMOVED AND AC LOWERED;BP 189/89,ALL MORNING MEDICATIONS GIVEN WILL MONITOR FOR EFFECTIVENESS;RESPIRATIONS EVEN AND UNLABORED,SHALLOW ON RA,CLEAR LUNG SOUNDS;ABDOMEN DISTENED/SOFT ON PALPATION;RIGHT EYE ABRASION,JACINTO R/T FALL;#22G TO LEFT FOREARM INFUSING NS @ 80ML/HR,SITE APPEARS HEALTHY AND SECURED WITH COBAN;TELE MONITOR IN PLACE;PT ALERT TO SELF ONLY,RE-ORIENTED ACCORDINLY TO PLACE AND TIME;BED ALARM IN PLACE FOR SAFETY;PO FLUIDS ENCOURAGED;CALL LIGHT IN REACH;WILL CONTINUE TO MONITOR
[2018-01-04 08:47] VITALS: BP 189/89
--- NOTE | 2018-01-04 09:40 | NUR ---
PT REFUSING PHYSICAL THERAPY STATING "IM 87 YEARS OLD AND IM NOT WALKING TODAY GIRL";PT ALSO REPORTS THAT HE IS IN [facility] AND HE WANTS TO MAKE SURE TERE LARIOS (FRIEND) KNOWS THAT HE IS HERE.PT RE-ASSURED THAT TERE DOES IN FACT KNOW HE IS HERE;PT DENIES ANY NEEDS AT THIS TIME;BED ALARM REMAINS IN PLACE;WILL CONTINUE TO MONITOR
--- NOTE | 2018-01-04 09:49 | NUR ---
MATT VELAZCO FROM [facility] CALLED TO VERIFY THAT PT IS ADMITTED TO THE FLOOR,NO OTHER INFORMATION WAS RELEASED
[2018-01-04 11:02] VITALS: BP 147/69
--- NOTE | 2018-01-04 12:30 | NUR ---
PT RESTING IN HIGH FOWLERS POSITION;PT COMPLAINS OF BACK PAIN RATING 8/10 ON THE PAIN SCALE;PRN LORTAB 5/325MG 1 COMBO PO ADMINISTERED AT THIS TIME;PT SET UP FOR LUNCH AND FEED INDEPENDENTLY;IV SITE PATENT AND TELE MONITOR IN PLACE;PT DENIES ANY OTHER NEEDS;FALL PRECAUTIONS IN PLACE WITH BED ALARM IN PLACE;WILL CONTINUE TO MONITOR
--- NOTE | 2018-01-04 12:54 | NUR ---
PTIENT REFUSING TO GET OOB OR WALK. 3 ATTEMPTS WITHOUT SUCCESS. PATIENT'S BED ALARM WENT OFF AFTER ATTEMPTS. BOTH NSG AND THERAPIST ENCOURAGED PATIENT TO GET UP, BUT HE WAS ADAMANT NOT TO GET UP TODAY.
[2018-01-04 15:56] VITALS: BP 142/54
--- NOTE | 2018-01-04 17:10 | NUR ---
PT APPEARS TO BE SLEEPING IN SUPINE POSITION;WOKE PT TO ADMINISTER SCHEDULED MEDICATION;PT COVERED WITH 1 UNIT OF NOVOLOG FOR A BS OF 173;IV SITE PATENT INFUSING NS @ 80ML/HR;TELE MONITOR IN PLACE;PT DENIES ANY PAIN OR NEEDS AT THIS TIME;BED ALARM ON FOR PT SAFETY;CALL LIGHT IN REACH;WILL CONTINUE TO MONITOR
[2018-01-04 19:12] VITALS: BP 154/83
--- NOTE | 2018-01-04 20:04 | NUR ---
RECEIVED CHANGE OF SHIFT REPORT FROM MELINA BARROSO. PATIENT LYING IN BED AND APPEARS TO BE ASLEEP. RESP EVEN AND NON-LABORED. NO APPARENT ACUTE DISTRESS NOTED.
--- NOTE | 2018-01-05 | NUR ---
PATIENT AWAKE AT THIS TIME AND BEING WASHED BY MANUFACTURING AUTOMATION ENGINEER. PATIENT BEING MORE COPERATIVE. NO APPARENT ACUTE DISTRESS OR DISCOMFORT NOTED.
--- NOTE | 2018-01-05 04:00 | NUR ---
PATIENT RESTING COMFORTABLY. NO APPARENT ACUTE CHANGES NOTED IN PT'S CONDITION.
[2018-01-05 04:17] VITALS: BP 174/91
--- NOTE | 2018-01-05 04:30 | NUR ---
PT C/O ITCHING TO BACK. LOTION APPLIED AND BACK RUB GIVEN.
[2018-01-05 06:39] LABS: HEMATOCRIT 35.6 % (39.0-50.0); HEMOGLOBIN 11.2 g/dl (14.0-18.0); MEAN CELL VOLUME 91.5 fL CALC (80.0-100.0); MEAN CORPUSCULAR HGB 28.8 pG CALC (26.0-32.0); MEAN CORPUSCULAR HGB CONC 31.5 g/L CALC (32.0-36.0); RED BLOOD COUNT 3.89 mill/uL (4.70-6.10)
[2018-01-05 06:54] LABS: CREATININE 1.4 mg/dL (0.7-1.3); MAGNESIUM 1.7 mg/dL (1.6-2.3); POTASSIUM 3.9 mmol/l (3.5-5.1)
--- NOTE | 2018-01-05 07:37 | NUR ---
PT WAS RESTING WITH EYES CLOSED. NO DISTRESS NOTED.
[2018-01-05 08:45] VITALS: BP 115/78
--- NOTE | 2018-01-05 08:45 | NUR ---
PT WAS AWAKE AND BEING FED BREAKFAST INQUIRING WHAT HE WAS DOING HERE. AND KNOWS HE IS SUPPOSED TO GO TO REHAB. IV SITE IS FREE FROM REDNESS OR EDEMA. HR IS REG, PULSES ARE STRONG . ABD IS SOFT WITH ACTIVE BS. CONTINUE TO OSBERVE AND MONITOR, TELE MONITOR IN PLACE.
[2018-01-05 10:59] VITALS: BP 118/67
--- NOTE | 2018-01-05 12:00 | NUR ---
PT IS RELAXING IN BED WITH NO DISTRESS NTOED. IV SITE IS FREE FROM REDNESS OR EDEMA. PT DID HAVE AN XRAY OF HIS COCCYX AND RETURNED TOLERATED WELL,.
[2018-01-05] MEDS ORDERED: AMLODIPINE BESYL5 MG PO (14:01)
[2018-01-05] MEDS ORDERED: LEVEMIR100 UNIT/M SC ×2 (14:06)
[2018-01-05] MEDS ORDERED: QUETIAPINE FUMA25 MG PO (14:06)
[2018-01-05] MEDS ORDERED: NOVOLOG100 UNIT/M SC (14:06)
[2018-01-05 15:33] LABS: INFLUENZA A NONE DETECTED (NONE DETECT); INFLUENZA B NONE DETECTED (NONE DETECT)
--- NOTE | 2018-01-05 16:30 | NUR ---
PT IS BEING TRANSPORTED TO [facility] VIA WC ACCOMPANIED BY STAFF. IV SITE DISCONTIEUD CATHETER INTACT. NO REDNESS OR EDEMA. TELE MONITOR TAKEN OFF. Discharge instructions given. Patient verbalizes understanding of same. Discharged in stable condition via Wheelchair to [facility] with *Other. All belongings sent with pt.
[2018-01-05 16:33] VITALS: BP 140/78
== END 2018-01-05 16:55 | DRG 884 ==
LOC: ED 02:02 → ED-I 05:40 → ED 05:40 → ED-I 05:44 → ED 06:12 → MS2 06:13
PROVIDERS: Emergency Medicine; Hospitalist; Nurse Practitioner Family; ADMIT Internal Medicine; ATTEND Internal Medicine
DX: F03.91 Unspecified dementia, unspecified severity, with behavioral disturbance (principal); E11.22 Type 2 diabetes mellitus with diabetic chronic kidney disease; E11.69 Type 2 diabetes mellitus with other specified complication; N18.3 Chronic kidney disease, stage 3 (moderate); I12.9 Hypertensive chronic kidney disease with stage 1 through stage 4 chronic kidney disease, or unspecified chronic kidney disease; E78.5 Hyperlipidemia, unspecified; I25.10 Atherosclerotic heart disease of native coronary artery without angina pectoris; R50.9 Fever, unspecified; S01.111A Laceration without foreign body of right eyelid and periocular area, initial encounter; X58.XXXA Exposure to other specified factors, initial encounter; Y92.239 Unspecified place in hospital as the place of occurrence of the external cause; Z95.1 Presence of aortocoronary bypass graft; Z79.4 Long term (current) use of insulin
CPT/HCPCS: G0378; J2060

== ENCOUNTER 2019-12-05 | Emergency (ER) | payer MEDICARE, OTHER ==
[~2019-12-05] MED LIST changes: +AMLODIPINE BESYL5 MG PO; +EQ NATURAL LAX8.6 MG; +LEVEMIR100 UNIT/M SC; +MINOCYCLINE HY100 MG PO; +NAMZARIC 28-101 CAP PO; +NOVOLOG100 UNIT/M SC; +OMEPRAZOLE20 M1 PO; +QUETIAPINE FUMA25 MG PO; +TRESIBA FL200 UNIT/M SC
[2019-12-05 21:28] LABS: HEMATOCRIT 38.9 % (39.0-50.0); HEMOGLOBIN 12.5 g/dl (14.0-18.0); IMMATURE GRANULOCYTES 0.3 % (0.0-5.0); MEAN CELL VOLUME 95.3 fL CALC (80.0-100.0); MEAN CORPUSCULAR HGB 30.6 pG CALC (26.0-32.0); MEAN CORPUSCULAR HGB CONC 32.1 g/L CALC (32.0-36.0); NEUT# 4.9 thou/uL (1.82-7.42); RED BLOOD COUNT 4.08 mill/uL (4.70-6.10); RED CELL DISTRI WIDTH 13.2 % (11.5-15.5)
[2019-12-05 21:41] LABS: ALKALINE PHOSPHATASE 87 u/l (38-126); BILIRUBIN, TOTAL 0.4 mg/dL (0.0-1.4); BUN 21 mg/dL (8-23); BUN/CREATININE RATIO 14 (12-20 (CALC)); CARBON DIOXIDE 22 mmol/l (22-30); CHLORIDE 111 mmol/l (95-108); CREATININE 1.5 mg/dL (0.7-1.3); ETHYL ALCOHOL 0 mg/dl (0-30); GFR 44 ML/MIN (>=60 (CALC)); GFR FOR AFR.AMER. 53 ML/MIN (>=60 (CALC)); POTASSIUM 4.2 mmol/l (3.5-5.1); SGOT/AST 23 u/l (19-48)
[2019-12-05] MEDS ORDERED: AMLODIPINE BESYL5 MG PO (21:42)
[2019-12-05] MEDS ORDERED: LIPITOR20 MG PO (21:43)
[2019-12-05 21:45] LABS: ALBUMIN 3.6 g/dL (3.2-5.0); ANION GAP 10 (6-22 (CALC)); SODIUM 139 mmol/l (137-146)
[2019-12-05] MEDS ORDERED: DOCUSATE CAL240 MG PO (21:45)
[2019-12-05] MEDS ORDERED: LEXAPRO10 MG PO (21:51)
[2019-12-05] MEDS ORDERED: LOSARTAN POTASS50 MG PO (21:51)
[2019-12-05] MEDS ORDERED: GNP MELATONIN3 MG PO (21:53)
[2019-12-05] MEDS ORDERED: TAMSULOSIN HCL0.4 MG PO (21:55)
[2019-12-05] MEDS ORDERED: VITAMIN B CO PO (21:57)
[2019-12-05] MEDS ORDERED: VITAMIN B-1100 M1 PO (21:57)
[2019-12-05] MEDS ORDERED: D2000 ULTRA2000 UNIT PO (22:03)
[2019-12-05] MEDS ORDERED: ARTIFICIAL TEAR1 OU (22:12)
[2019-12-05 22:27] LABS: URINE BILIRUBIN - DIPSTICK NEGATIVE (NEGATIVE); URINE BLOOD DIPSTICK SMALL (NEGATIVE); URINE COLOR YELLOW; URINE GLUCOSE - DIPSTICK NEGATIVE (NEGATIVE); URINE KETONE NEGATIVE (NEGATIVE); URINE LEUK ESTERASE NEGATIVE (NEGATIVE); URINE NITRITE - DIPSTICK NEGATIVE (Negative); URINE PROTEIN - DIPSTICK NEGATIVE (NEG-TRACE); URINE UROBILINOGEN - DIPSTICK 0.2 E.U./dL (0.2)
[2019-12-05 22:30] LABS: BARBITURATES NEGATIVE (NEGATIVE); COCAINE NEGATIVE (NEGATIVE); METHADONE NEGATIVE (NEGATIVE); OXCYCODONE NEGATIVE (NEGATIVE); TETRAHYDROCANNABIONOL NEGATIVE (NEGATIVE); TRICYLIC ANTIDEPRESSANTS NEGATIVE (NEGATIVE)
[2019-12-05 22:35] LABS: URINE SQUAMOUS EPITHELIAL CELL FEW EPI/hpf (0-FEW)
[2019-12-05 22:36] LABS: URINE BACTERIA FEW hpf
== END 2019-12-06 02:13 ==
PROVIDERS: Family Medicine
DX: Z04.6 Encounter for general psychiatric examination, requested by authority (principal); F03.91 Unspecified dementia, unspecified severity, with behavioral disturbance; I10 Essential (primary) hypertension; I25.10 Atherosclerotic heart disease of native coronary artery without angina pectoris; E11.9 Type 2 diabetes mellitus without complications; E21.3 Hyperparathyroidism, unspecified; Z79.4 Long term (current) use of insulin; Z95.1 Presence of aortocoronary bypass graft

== ENCOUNTER 2020-08-18 22:53 | Emergency (ER) | payer MEDICARE, OTHER ==
[~2020-08-18] VITALS: Ht 185.4 cm; Wt 95.0 kg
[~2020-08-18 22:53] MED LIST changes: +ARTIFICIAL TEAR1 OU; +D2000 ULTRA2000 UNIT PO; +DOCUSATE CAL240 MG PO; +GNP MELATONIN3 MG PO; +LEXAPRO10 MG PO; +LIPITOR20 MG PO; +LOSARTAN POTASS50 MG PO; +TAMSULOSIN HCL0.4 MG PO; +VITAMIN B CO PO; +VITAMIN B-1100 M1 PO
[2020-08-18 23:33] LABS: HEMATOCRIT 39.6 % (39.0-50.0); HEMOGLOBIN 12.7 g/dl (14.0-18.0); IMMATURE GRANULOCYTES 0.3 % (0.0-5.0); MEAN CELL VOLUME 92.3 fL CALC (80.0-100.0); MEAN CORPUSCULAR HGB 29.6 pG CALC (26.0-32.0); MEAN CORPUSCULAR HGB CONC 32.1 g/dL CAL (32.0-36.0); NEUT# 4.62 thou/uL (1.82-7.42); RED BLOOD COUNT 4.29 mill/uL (4.70-6.10); RED CELL DISTRI WIDTH 14.3 % (11.5-15.5)
[2020-08-18 23:47] LABS: ALBUMIN 3.4 g/dL (3.2-5.0); BILIRUBIN, TOTAL 0.5 mg/dL (0.0-1.4); CREATININE 1.4 mg/dL (0.7-1.3); POTASSIUM 4.5 mmol/l (3.5-5.1); TOTAL PROTEIN 6.8 g/dL (6.3-8.2)
[2020-08-18 23:59] LABS: MYOGLOBIN 41 ng/mL (0 - 121)
[2020-08-19] MEDS ORDERED: CETIRIZINE10 MG PO (00:19)
[2020-08-19] MEDS ORDERED: DONEPEZIL10 MG PO (00:20)
[2020-08-19] MEDS ORDERED: TAMSULOSIN0.4 MG PO (00:21)
[2020-08-19] MEDS ORDERED: LIPITOR20 MG PO (00:23)
[2020-08-19] MEDS ORDERED: NAMENDA10 MG PO (00:40)
[2020-08-19 00:49] LABS: URINE BILIRUBIN - DIPSTICK NEGATIVE (NEGATIVE); URINE BLOOD DIPSTICK TRACE-LYSED (NEGATIVE); URINE COLOR YELLOW; URINE GLUCOSE - DIPSTICK NEGATIVE (NEGATIVE); URINE KETONE NEGATIVE (NEGATIVE); URINE LEUK ESTERASE NEGATIVE (NEGATIVE); URINE NITRITE - DIPSTICK NEGATIVE (Negative); URINE PROTEIN - DIPSTICK NEGATIVE (NEG-TRACE); URINE SPECIFIC GRAVITY 1.015; URINE UROBILINOGEN - DIPSTICK 0.2 E.U./dL (0.2)
[2020-08-19 11:47] VITALS: BP 113/56
== END 2020-08-19 11:50 ==
LOC: ED 22:53
PROVIDERS: Emergency Medicine
DX: F91.8 Other conduct disorders (principal); I10 Essential (primary) hypertension; E11.9 Type 2 diabetes mellitus without complications; I25.10 Atherosclerotic heart disease of native coronary artery without angina pectoris; E21.3 Hyperparathyroidism, unspecified; Z95.1 Presence of aortocoronary bypass graft; Z79.4 Long term (current) use of insulin; Z20.828 Contact with and (suspected) exposure to other viral communicable diseases